=== PATIENT | female | born 1985 | race Caucasian/White ===

== ENCOUNTER 2021-02-18 19:14 | Emergency (ER) | payer OTHER, SELFPAY ==
--- NOTE | 2021-02-18 | ECG_ITS ---
Test Reason : PALPITATIONS Blood Pressure : / mmHG Vent. Rate : 092 BPM Atrial Rate : 092 BPM P-R Int : 150 ms QRS Dur : 068 ms QT Int : 358 ms P-R-T Axes : 070 079 055 degrees QTc Int : 442 ms Normal sinus rhythm Normal ECG When compared with ECG of 08-OCT-2017 19:32, No significant change was found Referred By: Generic ED Physician Electronically Signed By:SAMANTHA ENRIQUE MD
--- NOTE | ~2021-02-18 | XR_ITS ---
EXAMINATION: XR CHEST CLINICAL INFORMATION: Chest pain COMPARISON: None TECHNIQUE: Frontal view of the chest was obtained. FINDINGS: No significant abnormality is noted involving the heart, lungs, mediastinum, bony thorax or soft tissues. XR/XR chest 1V IMPRESSION: Unremarkable examination.
[2021-02-18 19:56] VITALS: BP 145/79; PULSE 104; RESP 22; TEMP 36.8; O2SAT 100; BMI 21.0
[2021-02-18 20:20] VITALS: BP 118/67; PULSE 75; RESP 18; TEMP 36.9; O2SAT 100
--- NOTE | 2021-02-18 20:49 | ED_ITS ---
HPI - Arrhythmia/Palpitations General Chief Complaint: Arrhythmia/Palpitations Stated Complaint: Palpitations/drug use Time Seen by Provider: 02/18/21 20:15 Source: patient Limitations: no limitations History of Present Illness HPI narrative: This is a 35-year-old female who was with some friends and decided to try cocaine. She said she does not typically do this kind of thing and she developed a feeling of chest pain and tightness as well as palpitations. She denies any dizzy spells. She feels a little short of breath. She denies any nausea. Pain does not go through to her back. She did cocaine around 18:30. She denies any history of high blood pressure, diabetes, elevated cholesterol. She does use tobacco occasionally Related Data Allergies Allergy/AdvReac Type Severity Reaction Status Date / Time No Known Allergies Allergy Unverified 12/17/19 19:19 [No Known Allergies*] Review of Systems Review of Systems: Yes all other systems are reviewed and are negative Constitutional: Constitutional: Reports as per HPI, Denies excessive sweating and Denies fever(s) Eyes: Eyes: Reports as per HPI and Reports no additional eye complaints ENT: Reports system reviewed and no additional complaints, except as documented, Reports as per HPI, Denies nasal congestion, Denies nasal discharge and Denies sore throat Cardiovascular: Cardiovascular: Reports as per HPI, Reports chest pain and Re ports dyspnea Respiratory: Respiratory: Reports as per HPI, Denies cough and Reports dyspnea Gastrointestinal: Gastrointestinal: Reports as per HPI, Denies abdominal pain, Denies diarrhea and Denies vomiting Genitourinary: Genitourinary: Reports as per HPI, Denies hematuria, Denies urinary frequency and Denies dysuria Musculoskeletal: Musculoskeletal: Reports no additional musculoskeletal complaints and Denies numbness Integumentary/Breasts: Skin/Breast: Reports as per HPI and Denies rash Neurologic: Reports as per HPI, Denies focal weakness, Denies numbness and Denies Sensory deficit (Neuro) Psychiatric: Psychiatric: Reports no additional psychiatric complaints and Reports as per HPI Endocrine: Endocrine: Reports no additional endocrine complaints, Reports as per HPI and Denies excessive sweating Hematologic/Lymphatic: Hematologic/Lymphatic: Reports no additional hematologic/lymphatic complaints, Reports as per HPI and Reports other (No peripheral edema) [facility] Social History Social History Advance Directives: No Advance Directives Information Provided: No Patient : Yes Physical Exam Vital Signs: Vital Signs: Last Vital Signs Temp 98.5 F 02/18/21 20:20 Pulse 67 02/18/21 21:54 Resp 15 02/18/21 21:54 BP 105/66 02/18/21 21:54 Pulse Ox 100 02/18/21 21:54 Body Mass Index 21.0 Const: General: cooperative, no acute distress and alert Orientation/consciousness: patient oriented x3 HENMT: Head: Yes normal to inspection Eyes: General: appearance normal, both eyes and all related structures Eyelids: Yes eyelids normal Conjunctivae: conjunctivae normal Pupils: Equal, round and reactive pupils present Neck: Neck: Yes normal visual inspection and Yes supple Chest: Chest palpation & inspection: normal inspection of the chest Resp: Effort & Inspection: normal respiratory effort Auscultation: clear to auscultation bilaterally Cardio: Rate: regular rate Rhythm: regular rhythm Heart sounds: S1 normal heart sound present, S2 normal heart sound present, no gallops, no murmurs and no rubs GI: Palpation (GI): Soft to palpation, nontender and Other GI palpation findings present (Non-distended) Auscultation: normal bowel sounds Skin: General skin exam: no rashes or lesions noted Neuro: General: patient oriented x3, no focal motor deficits and CN's II-XI intact bilaterally Cranial nerves: Yes Equal, round and reactive pupils present Cognition (Neuro): normal cognition Motor exam (neuro): 5/5 motor strength present throughout Sensory Exam: No Sensory deficit (Neuro) Extrem: General: Yes normal to inspection and Yes no pedal edema Psych: Appearance: grossly normal Affect: normal affect MDM - Arrhythmia/Palpitations MDM Narrative Medical decision making narrative: 35-year-old female used cocaine tonight, said this is not typical for her and that she had not used before. Patient seemed to have an anxiety reaction with palpitations and chest discomfort. EKG showed no concerning findings. Blood pressure was not significantly elevated. Initial heart rate was borderline tachycardic. Patient was treated with aspirin, was offered lorazepam but refused, also refused an IV. Patient stated she does want to make sure that her EKG did not show any concerning findings. Patient a risk, only risk factor for coronary disease, aside from the cocaine use tonight (which causes coronary artery spasm, not thrombotic/atherosclerotic disease), is light tobacco use. In light of the normal EKG, lack of risk factors, overall clinical picture, did not feel it was necessary to keep the patient for a 2nd troponin Lab Data Attestation: I reviewed the patient's lab results. Result diagrams: 02/18/21 20:49 02/18/21 20:49 Labs: Lab Results 02/18/21 02/18/21 02/18/21 Range/Units 20:49 20:49 20:49 WBC 12.3 H (4.8-10.8) X10*3/uL RBC 4.17 L (4.20-5.50) X10*6/uL Hgb 12.3 (12.0-16.0) g/dl Hct 36.9 L (37.0-47.0) % MCV 88.5 (80.0-98.0) fL MCH 29.5 (27.0-33.0) pg MCHC 33.3 (31.0-35.0) g/dl RDW 12.9 (11.0-16.0) % Plt Count 413 H (160-400) X10*3/uL MPV 8.6 L (9.4-12.3) fL Immature Gran % (Auto) 0.2 (0.0-0.4) % Neut % (Auto) 78.2 H (45-73) % Lymph % (Auto) 15.9 L (20-40) % [place] % (Auto) 5.0 (2-11) % Eos % (Auto) 0.4 (0-4) % Baso % (Auto) 0.3 (0-2) % Lymph # (Auto) 2.0 (1.2-4.9) X10*3/uL [place] # (Auto) 0.6 (0.1-1.2) X10*3/uL Eos # (Auto) 0.1 (0.0-0.4) X10*3/uL Baso # (Auto) 0.0 (0.0-0.2) X10*3/uL Abs Immat Gran (auto) 0.03 (0.00-0.03) X10*3/uL Absolute Neuts (auto) 9.6 H (2.0-8.3) x10*3/uL Absolute Nucleated RBC 0.000 (0.0-0.012) X10*3/uL Nucleated RBC % (auto) 0.0 (0.0-0.2) /100WBC Sodium 139 (135-145) mmol/L Potassium 3.5 (3.3-5.1) mmol/L Chloride 109 H (96-108) mmol/L Carbon Dioxide 23 (22-29) mmol/L Anion Gap 11 L (12-20) BUN 6 L (9-16) mg/dL Creatinine 0.68 (0.5-1.4) mg/dL Estim Creat Clear Calc 93.0 Estimated GFR > 60 Random Glucose 102 (60-115) mg/dL Calcium 9.1 (8.4-10.2) mg/dL Troponin I High Sens < 3.5 (<3.5-17.0) ng/L Beta HCG, Quant mIU/mL 02/18/21 Range/Units 20:49 WBC (4.8-10.8) X10*3/uL RBC (4.20-5.50) X10*6/uL Hgb (12.0-16.0) g/dl Hct (37.0-47.0) % MCV (80.0-98.0) fL MCH (27.0-33.0) pg MCHC (31.0-35.0) g/dl RDW (11.0-16.0) % Plt Count (160-400) X10*3/uL MPV (9.4-12.3) fL Immature Gran % (Auto) (0.0-0.4) % Neut % (Auto) (45-73) % Lymph % (Auto) (20-40) % [place] % (Auto) (2-11) % Eos % (Auto) (0-4) % Baso % (Auto) (0-2) % Lymph # (Auto) (1.2-4.9) X10*3/uL [place] # (Auto) (0.1-1.2) X10*3/uL Eos # (Auto) (0.0-0.4) X10*3/uL Baso # (Auto) (0.0-0.2) X10*3/uL Abs Immat Gran (auto) (0.00-0.03) X10*3/uL Absolute Neuts (auto) (2.0-8.3) x10*3/uL Absolute Nucleated RBC (0.0-0.012) X10*3/uL Nucleated RBC % (auto) (0.0-0.2) /100WBC Sodium (135-145) mmol/L Potassium (3.3-5.1) mmol/L Chloride (96-108) mmol/L Carbon Dioxide (22-29) mmol/L Anion Gap (12-20) BUN (9-16) mg/dL Creatinine (0.5-1.4) mg/dL Estim Creat Clear Calc Estimated GFR Random Glucose (60-115) mg/dL Calcium (8.4-10.2) mg/dL Troponin I High Sens (<3.5-17.0) ng/L Beta HCG, Quant < 2 mIU/mL Imaging Data Chest x-ray: Radiologist's impression: IMPRESSION: Unremarkable examination. ECG Data Attestation: I personally reviewed and interpreted this ECG as follows: ECG interpretation date: 02/18/21 ECG interpretation time: 19:30 Interpretation: Sinus rhythm with a rate of 92. No ST elevation or depression. Normal EKG. Discharge Plan Discharge Clinical Impression: Palpitations, Anxiety Patient Disposition: Home, Self-Care Instructions: Chest Pain (ED), Heart Palpitations (ED) Additional Instructions: Return for any new or worsening symptoms. Avoid cocaine use, but tobacco use. Follow-up your primary care physician. Interventions: ED Discharge Assessment Last Done: 02/18/21 21:58 Discharge Date/Time: 02/18/21 21:59
[2021-02-18 20:56] LABS: MANUAL DIFF FLAG NO
[2021-02-18 20:59] LABS: Basophils Percent Auto 0.3 % (0-2); Eosinophils Absolute Auto 0.1 X10*3/uL (0.0-0.4); Eosinophils Percent Auto 0.4 % (0-4); Hematocrit 36.9 % (37.0-47.0); Hemoglobin 12.3 g/dl (12.0-16.0); Imm Gran Abs Auto 0.03 X10*3/uL (0.00-0.03); Imm Gran Pct Auto 0.2 % (0.0-0.4); Lymphocytes Percent Auto 15.9 % (20-40); Mean Corpuscular HGB Conc 33.3 g/dl (31.0-35.0); Mean Corpuscular Hemoglobin 29.5 pg (27.0-33.0); Mean Corpuscular Volume 88.5 fL (80.0-98.0); Mean Platelet Volume 8.6 fL (9.4-12.3); Monocytes Absolute Auto 0.6 X10*3/uL (0.1-1.2); Neutrophils Absolute Auto 9.6 x10*3/uL (2.0-8.3); Neutrophils Percent Auto 78.2 % (45-73); Platelet Count 413 X10*3/uL (160-400); Red Blood Count 4.17 X10*6/uL (4.20-5.50); Red Cell Distribution Width 12.9 % (11.0-16.0); White Blood Count 12.3 X10*3/uL (4.8-10.8)
[2021-02-18] MEDS: Aspirin 81 MG TAB.CHEW 324 MG PO (21:07)
--- NOTE | 2021-02-18 21:07 | PC.NURSE ---
pt refusing ativan and IV placement provider notified
[2021-02-18 21:09] VITALS: PULSE 66
[2021-02-18 21:13] LABS: Anion Gap 11 (12-20); Blood Urea Nitrogen 6 mg/dL (9-16); Calcium 9.1 mg/dL (8.4-10.2); Carbon Dioxide 23 mmol/L (22-29); Chloride 109 mmol/L (96-108); Estimated Glomerular Filt Rate > 60; Glucose Random 102 mg/dL (60-115); Potassium 3.5 mmol/L (3.3-5.1); Sodium 139 mmol/L (135-145)
[2021-02-18 21:21] LABS: HCG Quantitative < 2 mIU/mL
[2021-02-18 21:22] LABS: Troponin-I High Sensitivity < 3.5 ng/L (<3.5-17.0)
[2021-02-18 21:54] VITALS: BP 105/66; PULSE 67; RESP 15; O2SAT 100
== END 2021-02-18 21:59 | disposition home or self-care (01) ==
PROVIDERS: Emergency Provider Emergency Medicine; PCP Nurse Practitioner Adult Health
DX: R00.2 Palpitations (principal); F41.9 Anxiety disorder, unspecified; F14.90 Cocaine use, unspecified, uncomplicated
CPT/HCPCS: 36415; 71045; 80048; 84484; 84702; 85025; 93005; 96374; 99284

== ENCOUNTER 2021-07-07 18:10 | Emergency (ER) | payer OTHER, SELFPAY ==
--- NOTE | ~2021-07-07 | XR_ITS ---
EXAMINATION: XR CHEST CLINICAL INFORMATION: Chest pain COMPARISON: Number 2020 TECHNIQUE: PA view of the chest was obtained. FINDINGS: No significant abnormality is noted involving the heart, lungs, mediastinum, bony thorax or soft tissues. XR/XR chest 1V IMPRESSION: No acute disease.
[2021-07-07 18:18] VITALS: BP 148/99; PULSE 90; RESP 18; TEMP 36.1; O2SAT 98; BMI 19.8
--- NOTE | 2021-07-07 18:22 | ECG_ITS ---
Test Reason : CP Blood Pressure : / mmHG Vent. Rate : 063 BPM Atrial Rate : 063 BPM P-R Int : 158 ms QRS Dur : 074 ms QT Int : 388 ms P-R-T Axes : 072 080 055 degrees QTc Int : 397 ms Normal sinus rhythm Normal ECG When compared with ECG of 18-FEB-2021 19:30, QT has shortened Referred By: Generic ED Physician Electronically Signed By:LOUISA WADE MD
[2021-07-07 18:34] LABS: MANUAL DIFF FLAG NO
[2021-07-07 18:35] LABS: Basophils Absolute Auto 0.1 X10*3/uL (0.0-0.2); Basophils Percent Auto 0.5 % (0-2); Eosinophils Absolute Auto 0.2 X10*3/uL (0.0-0.4); Eosinophils Percent Auto 2.2 % (0-4); Hemoglobin 13.1 g/dl (12.0-16.0); Imm Gran Abs Auto 0.02 X10*3/uL (0.00-0.03); Imm Gran Pct Auto 0.2 % (0.0-0.4); Lymphocytes Absolute Auto 2.6 X10*3/uL (1.2-4.9); Lymphocytes Percent Auto 26.1 % (20-40); Mean Corpuscular HGB Conc 32.8 g/dl (31.0-35.0); Mean Corpuscular Hemoglobin 29.4 pg (27.0-33.0); Mean Corpuscular Volume 89.7 fL (80.0-98.0); Mean Platelet Volume 8.6 fL (9.4-12.3); Monocytes Absolute Auto 0.7 X10*3/uL (0.1-1.2); Monocytes Percent Auto 6.7 % (2-11); Neutrophils Absolute Auto 6.4 x10*3/uL (2.0-8.3); Neutrophils Percent Auto 64.3 % (45-73); Platelet Count 421 X10*3/uL (160-400); Red Blood Count 4.46 X10*6/uL (4.20-5.50); Red Cell Distribution Width 12.5 % (11.0-16.0); White Blood Count 9.9 X10*3/uL (4.8-10.8)
[2021-07-07 18:47] LABS: Anion Gap 12 (12-20); Blood Urea Nitrogen 8 mg/dL (9-16); Calcium 9.2 mg/dL (8.4-10.2); Carbon Dioxide 26 mmol/L (22-29); Chloride 104 mmol/L (96-108); Creatinine Clr Calc Pharmacy 77.9; Estimated Glomerular Filt Rate > 60; Glucose Random 96 mg/dL (60-115); Potassium 3.9 mmol/L (3.3-5.1); Sodium 138 mmol/L (135-145)
[2021-07-07 18:55] LABS: Troponin-I High Sensitivity < 3.5 ng/L (<3.5-17.0)
== END 2021-07-07 23:55 | disposition left against medical advice (07) ==
LOC: HO.ED 23:28
PROVIDERS: Emergency Provider Emergency Medicine; PCP Nurse Practitioner Adult Health
DX: R07.89 Other chest pain (principal); R00.2 Palpitations; Z79.899 Other long term (current) drug therapy
CPT/HCPCS: 36415; 71045; 80048; 84484; 85025; 93005; 99283

== ENCOUNTER 2023-03-04 14:13 | Outpatient (AMB) | payer OTHER, SELFPAY ==
--- NOTE | 2023-03-04 14:20 | MHC.OFFVIS ---
Intake Vital Signs 03/04/23 14:29 Height 5 ft 2 in Weight 117 lb 4 oz BMI 21.4 BP 128/72 Blood Pressure Location Lt brachial Position Sitting Respiration 12 Pulse 70 Pulse Source Pulse Oximeter Pulse Oximetry (%) 99 Oxygen Delivery Method Room Air Intake Visit Reasons: Chronic Sacroiliac Joint Pain/lvm Intake Note: patient comes in for initial visit was referred by PCP. She reports pain level of 3-4/10. Allergies No Known Allergies [No Known Allergies*] Allergy (Verified 03/04/23 14:27) HPI HPI Comments History of Present Illness Details Kateryna is very pleasant 37 years old female who came today in the office with complains on lower back pain and bilateral pain in the groins. She reports that this pain started 10 years ago. She was diagnosed with sacroiliitis. She was subject of sacroiliac joint fusion on the left with pain LUCIEN as SI joint screws. She reports numbness in the left hip and thigh after the procedure but she reports stability of the sacroiliac joint and absence of the pain from sacroiliac joint. However she reports that her right sacroiliac joint starts to bother her. She reported that before her doctor moved away to [place] she was planning to do the right sacroiliac joint fusion as well. She reports that she can not sleep normally but she can do activities of daily living, can take care of herself and can not function normally. 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 She reports that weather changes and movements aggravate her pain. Heat and oral medications being her pain better. Her pain is most severe in the middle of the night. Florencia severe pain she experiences during daytime. In terms of tissue damage she reports her pain is pulsing, throbbing, pounding, dull, hurting, heavy, tiring, exhausting, tight, squeezing, tearing sensation. She was subject of physical therapy at [facility]. She had MRI performed at [facility] of the lumbar spine. Unfortunately we were not able to open up the report from the disc. She was subject of acupuncture at [facility] she reports that both modalities helped her pain. She reports that in the past because of the dull bulging disc on MRI she reported epidural steroid injections however those were not helpful for her. She also reported facet joint injections which were not helping her. Her past medical history is negative. Sacroiliac joint fusion is the only surgical procedure she received in the past. She denies recreational drugs however she was admitted to [facility] once for cocaine consumption. She admits smoking cigarettes 1-2 cigarettes a day she admits drinking 2 beers 3 times a week and she drinks caffeinated beverages daily. One cup of coffee. Review of Systems Const Denies fatigue, Denies weight gain and Denies weight loss Eyes Denies blurry vision ENT Reports Normal hearing present and Denies sore throat Card Denies dyspnea Resp Denies cough and Denies dyspnea GI Denies constipation and Denies diarrhea Denies urinary frequency and Denies dysuria Musc Denies numbness and Reports tingling Neuro Reports Normal hearing present, Denies Abnormal speech present, Denies confusion, Denies numbness, Denies Sensory deficit (Neuro), Reports tingling and Denies tremor(s) Psych Reports abnormal sleep pattern, Denies confusion and Denies depression Endo Denies fatigue Physical Exam Vital Signs: Last Vital Signs Pulse 70 03/04/23 14:29 Resp 12 03/04/23 14:29 BP 128/72 03/04/23 14:29 Pulse Ox 99 03/04/23 14:29 Oxygen Delivery Method Room Air 03/04/23 14:29 BMI result Body Mass Index 21.4 Const General: no acute distress; No confusion Orientation/consciousness: patient oriented x3 and No confusion Eyes General: appearance normal, both eyes and all related structures Pupils: Equal, round and reactive pupils present EOM: EOMs intact bilaterally Neck Neck: Yes full ROM Chest Chest palpation & inspection: normal inspection of the chest Resp Effort & Inspection: normal respiratory effort, able to speak in complete sentences, normal respiratory pattern, no audible wheezes and no cough Cardio Jugular venous distension: no JVD GI Inspection: Yes normal to inspection Back/Spine/Pelvis Other: Positive Brown test on the right positive Gaenslen test on the right and positive pelvic destruction test on the right, positive Natalee finger test as well on the right. Lateral rotation of the right hip and lateral rotation of the left hip cause severe discomfort in the groins bilaterally. Tenderness on palpation in the projection of the sacral bone. No tenderness on palpation in the projection of the lumbar spine. Neuro General: patient oriented x3, gait normal and No confusion Cranial nerves: Yes CN's II-XII intact bilaterally, Yes Equal, round and reactive pupils present, Yes Normal hearing present and Yes Ability to bilaterally elevate shoulders present Speech: No Abnormal speech present Gait exam (Neuro): Normal gait present Motor exam (neuro): 5/5 motor strength present throughout Sensory Exam: No Sensory deficit (Neuro) Extrem General: No pedal edema Psych Speech and movement: Normal speech and movement present Affect: normal affect Attitude: cooperative Thought process: Normal thought process present Thought content: Normal thought content present Insight: Good insight present (Psych) Judgement: Good judgement present (Psych) Assessment & Plan Assessment & Plan (1) Osteoarthritis of hips, bilateral: Code(s): M16.0 - Bilateral primary osteoarthritis of hip (2) Sacroiliitis: Code(s): M46.1 - Sacroiliitis, not elsewhere classified (3) Sacroiliac joint dysfunction of right side: Code(s): M53.3 - Sacrococcygeal disorders, not elsewhere classified Plan This patient will be diagnosed with hip osteoarthritis bilateral as well as sacroiliac joint dysfunction and sacroiliitis on the right. The left joint has been fused. I will schedule this patient for x-ray of bilateral pelvis and bilateral hips and I will schedule her for evaluation in 2 weeks. I also offered her diagnostic sacroiliac joint injection on the right however the patient refused to go for this injection. In 2 weeks we will discuss the results of the x-ray and the possibility of treating her sacroiliac joint on the right. I also explained her briefly sacroiliac joint stabilization with fusion however this would require her to stop smoking cigarettes for at least 3 months. Will request [facility] MRI report of the lumbar spine MRI. Orders: Orders XR hip BI w [id number] Today M16.0 - Bilateral primary osteoarthritis of hip Patient Instructions: I here by testify that I spent 45 minutes in conversation with this patient, examining this patient, evaluation patient prior records as well as trying to read patient's MRI disc which happened to be impossible. Coding Level of Care Code New Pt Level 4 (88005) Diagnoses Osteoarthritis of hips, bilateral M16.0 Sacroiliitis M46.1 Sacroiliac joint dysfunction of right side M53.3
[2023-03-04 14:29] VITALS: BP 128/72; PULSE 70; RESP 12; O2SAT 99; BMI 21.4
== END 2023-03-04 15:10 | disposition home or self-care (01) ==
PROVIDERS: PCP Nurse Practitioner Adult Health; Referring Provider Nurse Practitioner Adult Health; Visit Provider Anesthesiology
DX: M16.0 Bilateral primary osteoarthritis of hip (principal); M46.1 Sacroiliitis, not elsewhere classified; M53.3 Sacrococcygeal disorders, not elsewhere classified
CPT/HCPCS: 99204

== ENCOUNTER → 2023-03-04 14:13 | Outpatient (BNVA) | payer OTHER, SELFPAY | PROVIDERS: PCP Nurse Practitioner Adult Health; Referring Provider Nurse Practitioner Adult Health; Visit Provider Anesthesiology ==

== ENCOUNTER 2024-02-19 14:26 | Outpatient (AMB) | payer OTHER, SELFPAY ==
--- NOTE | 2024-02-19 14:29 | A.OFFVIS_ITS ---
Vital Signs 02/19/24 14:31 Height 5 ft 2 in Weight 113 lb BMI 20.7 BP 118/82 Blood Pressure Location Lt brachial Position Sitting Respiration 15 Pulse 89 Pulse Source Pulse Oximeter Pulse Oximetry (%) 100 Oxygen Delivery Method Room Air Intake Visit Reasons: Mid back pain and spasms effecting sleep Allergies No Known Allergies [No Known Allergies*] Allergy (Verified 02/19/24 14:33) Medication List - Last Reconciled 02/19/24 by Nita Sesay LPN lisdexamfetamine 20 mg PO DAILY HPI Comments Details: Kateryna is back in my office after almost 1 year of absence. Now she complains on spasticity in the thoracic spine and pain in the thoracic and lumbar spine. In the past she never had x-ray which was ordered for her of her pelvis to find the diagnosis of the bilateral hip pain. I will re-enter this order. I also wi ll send her for x-ray of the lumbar and thoracic spine. I also recommended her to go for physical therapy. I will start her on tizanidine 2 mg t.i.d. to help her sleep at night and reduce her spasticity. Prior: 37 years old female who came today in the office with complains on lower back pain and bilateral pain in the groins. She reports that this pain started 10 years ago. She was diagnosed with sacroiliitis. She was subject of sacroiliac joint fusion on the left with pain LUCIEN as SI joint screws. numbness in the left hip and thigh after the procedure but she reports stability of the sacroiliac joint and absence of the pain from sacroiliac joint. However she reports that her right sacroiliac joint starts to bother her. She reported that before her doctor moved away to [place] she was planning to do the right sacroiliac joint fusion as well. 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 Review of Systems Const All systems reviewed & are unremarkable except as noted in HPI and below ENT Reports Normal hearing present Neuro Reports Normal hearing present, Denies Abnormal speech present, Denies confusion and Denies Sensory deficit (Neuro) Psych Denies confusion Physical Exam Vital Signs: Last Vital Signs Pulse 89 02/19/24 14:31 Resp 15 02/19/24 14:31 BP 118/82 02/19/24 14:31 Pulse Ox 100 02/19/24 14:31 Oxygen Delivery Method Room Air 02/19/24 14:31 BMI result Body Mass Index 20.7 Const General: no acute distress; No confusion Orientation/consciousness: patient oriented x3 and No confusion Eyes General: appearance normal, both eyes and all related structures Pupils: Equal, round and reactive pupils present EOM: EOMs intact bilaterally Neck Neck: Yes full ROM Chest Chest palpation & inspection: normal inspection of the chest Resp Effort & Inspection: normal respiratory effort, able to speak in complete sentences, normal respiratory pattern, no audible wheezes and no cough Cardio Jugular venous distension: no JVD GI Inspection: Yes normal to inspection Back/Spine/Pelvis Other: Positive Brown test on the right positive Gaenslen test on the right and positive pelvic destruction test on the right, positive Natalee finger test as well on the right. Lateral rotation of the right hip and lateral rotation of the left hip cause severe discomfort in the groins bilaterally. Tenderness on palpation in the projection of the sacral bone. No tenderness on palpation in the projection of the lumbar spine. Neuro General: patient oriented x3, gait normal and No confusion Cranial nerves: Yes CN's II-XII intact bilaterally, Yes Equal, round and reactive pupils present, Yes Normal hearing present and Yes Ability to bilaterally elevate shoulders present Speech: No Abnormal speech present Gait exam (Neuro): Normal gait present Motor exam (neuro): 5/5 motor strength present throughout Sensory Exam: No Sensory deficit (Neuro) Extrem General: No pedal edema Psych Speech and movement: Normal speech and movement present Affect: normal affect Attitude: cooperative Thought process: Normal thought process present Thought content: Normal thought content present Insight: Good insight present (Psych) Judgement: Good judgement present (Psych) Assessment & Plan Assessment & Plan (1) Osteoarthritis of hips, bilateral: Code(s): M16.0 - Bilateral primary osteoarthritis of hip Category: Medical (2) Sacroiliitis: Code(s): M46.1 - Sacroiliitis, not elsewhere classified Category: Medical (3) Osteoarthritis of hips, bilateral: Code(s): M16.0 - Bilateral primary osteoarthritis of hip Category: Medical (4) Sacroiliac joint dysfunction of right side: Code(s): M53.3 - Sacrococcygeal disorders, not elsewhere classified Category: Medical (5) Spondylosis of lumbar region without myelopathy or radiculopathy: Code(s): M47.816 - Spondylosis without myelopathy or radiculopathy, lumbar region Category: Medical (6) Spondylosis of thoracic region without myelopathy or radiculopathy: Code(s): M47.814 - Spondylosis without myelopathy or radiculopathy, thoracic region Category: Medical (7) Spondylosis of lumbar region without myelopathy or radiculopathy: Code(s): M47.816 - Spondylosis without myelopathy or radiculopathy, lumbar region Category: Medical Plan I will send her for physical therapy with suspicion of spondylosis and arthritis of the thoracic and lumbar spine. I also will send her for x-ray of the thoracic spine, x-ray of the lumbar spine, and I will repeat the order for x-ray of hip and pelvis. I will see her in 10 weeks. Orders: Orders XR thoracic spine 3V Today M47.814 - Spondylosis without myelopathy or radiculopathy, thoracic region PT Evaluation and Treatment Today M47.814 - Spondylosis without myelopathy or radiculopathy, thoracic region, M47.816 - Spondylosis without myelopathy or radiculopathy, lumbar region XR hip BI w PEL1V Today M16.0 - Bilateral primary osteoarthritis of hip, M46.1 - Sacroiliitis, not elsewhere classified, M53.3 - Sacrococcygeal disorders, not elsewhere classified XR lumbar spine 4V min Today M47.816 - Spondylosis without myelopathy or radiculopathy, lumbar region Medications: New tizanidine 2 mg PO TID 30 days PRN 90 tabs 8RF muscle spasticity Coding Level of Care Code Est Pt Level 3 (99935) Diagnoses Osteoarthritis of hips, bilateral M16.0 Sacroiliitis M46.1 Sacroiliac joint dysfunction of right side M53.3 Spondylosis of lumbar region without myelopathy or radiculopathy M47.816 Spondylosis of thoracic region without myelopathy or radiculopathy M47.814
[2024-02-19 14:31] VITALS: BP 118/82; PULSE 89; RESP 15; O2SAT 100; BMI 20.7
== END 2024-02-19 14:41 | disposition home or self-care (01) ==
PROVIDERS: PCP Nurse Practitioner Adult Health; Visit Provider Anesthesiology
DX: M16.0 Bilateral primary osteoarthritis of hip (principal); M46.1 Sacroiliitis, not elsewhere classified; M53.3 Sacrococcygeal disorders, not elsewhere classified; M47.816 Spondylosis without myelopathy or radiculopathy, lumbar region; M47.814 Spondylosis without myelopathy or radiculopathy, thoracic region
CPT/HCPCS: 99213

== ENCOUNTER 2024-02-19 14:26 | Outpatient (REF) | payer OTHER, SELFPAY ==
--- NOTE | ~2024-02-19 | XR_ITS ---
EXAMINATION: XR THORACIC SPINE CLINICAL INFORMATION: M47.814 - Spondylosis without myelopathy or radiculopathy, thoracic region COMPARISON: None available. TECHNIQUE: 3 views of the thoracic spine were obtained. FINDINGS: Submitted for interpretation on March 06, 2024. S-shaped curvature of the thoracic spine. No acute cortical disruption or malalignment. No lytic or blastic lesions. Multilevel endplate sclerosis and decreased intervertebral disc height. XR/XR thoracic spine 3V IMPRESSION: Scoliosis, mild. Spondylosis, mild. Electronically signed by: Adebayo Cool MD 03/06/2024 08:35 AM [facility]AS[facility]
--- NOTE | ~2024-02-19 | XR_ITS ---
EXAMINATION: XR BILATERAL HIPS WITH AP PELVIS CLINICAL INFORMATION: M16.0 - Bilateral primary osteoarthritis of hip COMPARISON: None available. TECHNIQUE: AP view of the pelvis and single views of each hip were obtained. FINDINGS: Metallic hardware through the left sacroiliac joint. Sclerosis in the sacroiliac joints bilaterally. Degenerative changes in the symphysis pubis. No acute cortical disruption in the bony pelvis. The coxofemoral joints demonstrated no acute cortical disruption or malalignment. No lytic or blastic lesions. T-shaped intrauterine contraceptive device overlaps the lower sacrum. XR/XR hip BI w PEL1V IMPRESSION: No acute fracture or dislocation. No gross osteoarthrosis, coxofemoral joints. Electronically signed by: Adebayo Cool MD 03/06/2024 08:33 AM [facility]
--- NOTE | ~2024-02-19 | XR_ITS ---
No images. Electronically signed by: Adebayo Cool MD 03/06/2024 08:[address] [facility] [place]
== END 2024-02-19 14:27 | disposition home or self-care (01) ==
LOC: HO.XRAY 14:26
PROVIDERS: PCP Nurse Practitioner Adult Health; Visit Provider Anesthesiology
DX: M47.814 Spondylosis without myelopathy or radiculopathy, thoracic region (principal); M16.0 Bilateral primary osteoarthritis of hip; M46.1 Sacroiliitis, not elsewhere classified; M53.3 Sacrococcygeal disorders, not elsewhere classified; M47.816 Spondylosis without myelopathy or radiculopathy, lumbar region
CPT/HCPCS: 72072; 72110; 73521

== ENCOUNTER → 2024-02-19 14:50 | Outpatient (BNV) | payer OTHER, SELFPAY | PROVIDERS: PCP Nurse Practitioner Adult Health; Visit Provider Radiology Diagnostic Radiology | DX: M47.814 Spondylosis without myelopathy or radiculopathy, thoracic region (principal); M16.0 Bilateral primary osteoarthritis of hip | CPT/HCPCS: 72072; 73521; 99499 ==